=== PATIENT | female | born 1955 | race African-American/Black ===

== ENCOUNTER 2016-07-25 16:42 | Inpatient (IN) | payer OTHER ==
[~2016-07-25] VITALS: Ht 167.6 cm; Wt 83.0 kg
[2016-07-25] MEDS ORDERED: TRAN1TBM PO (18:20)
[2016-07-25 19:15] VITALS: BP 142/86
[2016-07-25] MEDS ORDERED: IBUPROFEN 400 MG TABLET. PO PRN (19:30)
[2016-07-25] MEDS: HYDROcodone/APAP 5/325MG 1 TAB TABLET PO PRN (21:12)
[2016-07-25 22:01] LABS: BASO % 1 % (0-3); EOS % 0 % (0-3); HEMATOCRIT 36.8 % (36.0-47.0); HEMOGLOBIN 12.4 g/dL (12.0-15.5); LYMPH # 2.5 x10^3/uL (1.0-4.8); LYMPH % 28 % (24-48); MEAN CORPUSCULAR HEMOGLOBIN 25 pg (25-35); MEAN CORPUSCULAR HGB CONC 34 g/dL (31-37); MEAN CORPUSCULAR VOLUME 73 fL (79-100); MONO % 3 % (0-9); NEUT % 68 % (31-73); PLATELET COUNT 152 x10^3/uL (140-400); RED BLOOD COUNT 5.03 x10^6/uL (3.50-5.40); RED CELL DISTRIBUTION WIDTH 20.7 % (11.5-14.5); WHITE BLOOD COUNT 8.8 x10^3/uL (4.0-11.0)
[2016-07-25 22:17] LABS: ALBUMIN 3.5 g/dL (3.4-5.0); CALCIUM 10.2 mg/dL (8.5-10.1); CREATININE 1.1 mg/dL (0.6-1.0); GFR 61.7; MAGNESIUM 2.1 mg/dL (1.8-2.4); POTASSIUM 4.2 mmol/L (3.5-5.1); TOTAL BILIRUBIN 0.4 mg/dL (0.2-1.0)
[2016-07-25 22:52] LABS: PLT ESTIMATE ADEQUATE (ADEQUATE)
[2016-07-25 22:54] LABS: ANISOCYTOSIS MOD; HYPOCHROMIA MOD; MICROCYTOSIS SLIGHT; POIKILOCYTOSIS SLIGHT; SPHEROCYTES OCC; TARGET CELLS PRESENT
[2016-07-25 22:55] LABS: OVALOCYTES OCC
[2016-07-25] MEDS: DEXAMETHASONE SOD PHOS 4 MG/ML VIAL IV SCH (23:15)
[2016-07-25 23:45] VITALS: BP_SYST 107; BP_SYST 156; BP_DIAS 63; BP_DIAS 84
[2016-07-26] MEDS: HYDROcodone/APAP 5/325MG 1 TAB TABLET PO PRN (03:39)
[2016-07-26 03:41] VITALS: BP 160/89
[2016-07-26 05:08] LABS: CHOLESTEROL/HDL RATIO 2.9
[2016-07-26] MEDS: DEXAMETHASONE SOD PHOS 4 MG/ML VIAL IV SCH ×2 (06:13→12:00)
[2016-07-26 07:00] VITALS: BP 155/94
[2016-07-26] MEDS ORDERED: REGADENOSON 0.4 MG/5 ML DISP.SYRIN. IV ONE (09:00)
--- NOTE | 2016-07-26 10:15 | EKG ---
[facility] [address] [place] [address] Test Date: 2016-07-26 Test Time: 05:21:54 Pat Name: BEVERLEY GILL Department: Room: 207 Gender: F Qa Auditor: MARIAN : 1955 Requested By: DANIEL MORALES Order Number: [id number] Reading MD: Florian Salomon Measurements Intervals [place] Rate: 60 P: 49 IN: 126 QRS: -11 QRSD: 86 T: 48 QT: 434 QTc: 438 Interpretive Statements SINUS RHYTHM Electronically Signed On 07-31-2016 13:50:06 CDT by Florian Salomon
[2016-07-26 11:00] VITALS: BP 136/92
[2016-07-26 15:58] VITALS: BP 160/85
[2016-07-26] MEDS ORDERED: PRED20TA PO (17:19)
[2016-07-26] MEDS ORDERED: NITR0.4T6 SL (17:20)
--- NOTE | 2016-07-26 19:26 | DS ---
DATE OF DISCHARGE: 07/26/2016 HOSPITAL COURSE: This is a 60-year-old black female, who came into the office after being hospitalized at [facility] to obtain a return to work note, but she at that time complained of chest pain. The pain, she said, was across the upper part of the chest. It had just started. An EKG was taken, which was unremarkable. She was given nitroglycerin, with which there was not much help. She was thus hospitalized. Since coming in, she has had no further chest pain. Cardiac enzymes were negative. An EKG was also normal. She underwent a myocardial perfusion imaging study on the . It showed a mixed perfusion defect in the inferolateral wall. This was of a mild degree and the size was at least medium. It could correspond to a lesion in the posterolateral wall. The patient had no further chest pain and did not want to stay for further investigations. Since this was a mixed perfusion defect and not clearly ischemic because it was present both with stress and rest and because she had no further chest pain and because there were no increase in the enzymes, no further investigations were carried out in this hospitalization. She was discharged. She was told that she could go back to work because she was insisting on going back to work. Her work involved standing for the entire period of time. She has continued to have some left leg pain and now some right leg pain. However, she wants to go and thus she was allowed to go back to work and let us know if she has more leg pain and certainly let me know if she has chest pain. She was asked to go back on her antihypertensive drug and she was also asked to take aspirin 81 mg a day. Her lipid levels were as follows: The total cholesterol was 163, triglycerides 90, LDL cholesterol 88 and HDL cholesterol was 57. This being the case, she was not placed on statin. She was given a prescription for nitroglycerin to be taken on a p.r.n. basis. She will be seen in the office this week to see how she is doing with her back. There were also some more investigations to be done from her MRI scan at [facility]. We will talk about it at that time. DANIEL MORALES MD DR: HENRY/petar JOB#: [id number] / [id number]
--- NOTE | 2016-08-05 12:48 | HP ---
ADMIT DATE: 07/25/2016 HISTORY OF PRESENT ILLNESS: This is a 60-year-old black female who was seen in the office. She really came in to get back to work note. However, she also stated that she had been having chest pain since the morning. She pointed to . She says she was uncomfortable. She had EKG taken in the office which was normal. However, because of the new onset of chest pain in this lady, who is postmenopausal and has hypertension, she was hospitalized to rule out an acute coronary syndrome. She had recently been hospitalized at [facility] when she came in complaining of left leg pain. It was a radicular pain, severe. She could not function. She could not stand or walk. She was thus hospitalized because she could not function at home. At [facility], she was noted to have impingement of the intervertebral space between L4 and L5. 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 As far as the left leg pain goes, the pain was much better after starting IV Decadron. She was seen in consultation by neurosurgeon, who did not want to do anything further about the left leg pain. As far as the process in L2 goes, she was advised a biopsy, but she did not want to go through with it. When we did the MRI of the spine, other incidental findings were noted. 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 Her blood pressure remained stable. She felt much better and she was able to walk and was discharged on oral prednisone. When I saw her in the office, the pain has recurred, but was not as severe. We did not talk much about the L2 biopsy again and she came into the office because this time her main problem was the chest pain. I advised hospitalization and she agreed. She has had her lipid levels drawn and has not been abnormal. She does not have diabetes mellitus. She does not smoke. She takes an antihypertensive drug for her hypertension, which she was not sure of the name of it. This was given to her by her PCP, Dr. Joyce. PHYSICAL EXAMINATION: GENERAL: She is in no distress. VITAL SIGNS: The heart rate is 80 per minute and regular. The blood pressure is 160/90. LUNGS: Clear. CARDIOVASCULAR: The heart sounds are normal with no murmur or gallop. ABDOMEN: Soft. There are no masses. EXTREMITIES: The distal pulses are palpable. The carotids are palpable with no bruits. The straight leg raising test on the left leg was somewhat painful, but not as bad as before she went to [facility]. IMPRESSION AND PLAN: 1. Chest pain, rule out acute coronary syndrome. 2. Hypertension. 3. 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 DANIEL MORALES MD DR: HENRY/petar JOB#: [id number] / [id number]
== END 2016-07-26 17:50 | disposition home or self-care (01) | DRG 313 ==
LOC: 2 NORTH 17:15
PROVIDERS: ADMIT Specialist; ATTEND Specialist
DX: R07.89 Other chest pain (principal); Z79.82 Long term (current) use of aspirin
CPT/HCPCS: 36415; 78452; 80053; 80061; 83735; 84484; 85007; 85027; 93005; 93017; 96374; 96375; 96376; A9500; J1100; J2785